=== PATIENT | male | born 1980 | race Caucasian/White ===

== ENCOUNTER 2018-12-20 09:30 | Outpatient (CLI) | payer OTHER ==
--- NOTE | 2018-12-20 10:51 | RAD ---
LEFT FOREARM TWO VIEWS: History: Injury. Left forearm pain and contusion. FINDINGS/IMPRESSION: There is a minimally displaced oblique fracture involving the distal ulna. POS: C
== END 2018-12-20 09:31 | disposition home or self-care (01) ==
LOC: BICRAD 09:30
PROVIDERS: ATTEND Family Medicine
DX: S50.12XA Contusion of left forearm, initial encounter (principal); S52.602A Unspecified fracture of lower end of left ulna, initial encounter for closed fracture